=== PATIENT | male | born 1995 | race Caucasian/White ===

== ENCOUNTER 2018-06-13 14:24 | Emergency (ER) | payer MEDICAID ==
[2018-06-13] MEDS: KETOROLAC 30 MG INJ IV (15:25)
[2018-06-13] MEDS: SOD CHLORIDE 0.9% 500 ML IV (15:27)
[2018-06-13] MEDS: DIPHENHYDRAMINE 50 MG INJ IV (15:27)
[2018-06-13] MEDS: PROCHLORPERAZINE 10 MG INJ IV (15:36)
== END 2018-06-13 16:14 | disposition home or self-care (01) ==
LOC: FTE 16:14
DX: R51 Headache (principal); J45.909 Unspecified asthma, uncomplicated
CPT/HCPCS: 96361; 96374; 96375; 99284-25